=== PATIENT | male | born 1935 | race Caucasian/White ===

== ENCOUNTER 2016-08-21 11:03 | Emergency (ER) | payer MEDICARE, OTHER ==
[~2016-08-21] VITALS: Ht 172.7 cm; Wt 72.6 kg
[2016-08-21 11:03] VITALS: BP 177/110
== END 2016-08-21 11:27 | disposition home or self-care (01) ==
LOC: ER 11:05
DX: J02.9 Acute pharyngitis, unspecified (principal); Z90.89 Acquired absence of other organs
CPT/HCPCS: 99283; A4606; Z7610

== ENCOUNTER 2016-10-30 09:34 | Emergency (ER) | payer OTHER ==
[~2016-10-30] VITALS: Ht 170.2 cm; Wt 66.2 kg
[2016-10-30 09:38] VITALS: BP 151/104
== END 2016-10-30 10:04 | disposition home or self-care (01) ==
LOC: ER 09:36
DX: L03.116 Cellulitis of left lower limb (principal); M10.9 Gout, unspecified
CPT/HCPCS: 99283; A4606; Z7610

== ENCOUNTER 2016-12-26 14:46 | Emergency (ER) | payer MEDICARE, OTHER ==
[~2016-12-26] VITALS: Ht 165.1 cm; Wt 65.8 kg
[2016-12-26 15:00] VITALS: BP 122/81
[2016-12-26] MEDS ORDERED: INDOMETHACIN 25 MG CAPSULE ONE (15:26)
[2016-12-26] MEDS ORDERED: INDOMETHACIN 25 MG CAPSULE PO ONE (15:30)
== END 2016-12-26 16:44 | disposition home or self-care (01) ==
LOC: ER 14:47
DX: M10.9 Gout, unspecified (principal); Z90.89 Acquired absence of other organs
CPT/HCPCS: 36415; 73660; 84550; 99285; A4606; Z7610

== ENCOUNTER 2016-12-28 13:52 | Emergency (ER) | payer MEDICARE ==
[~2016-12-28] VITALS: Ht 170.2 cm; Wt 68.0 kg
--- NOTE | 2016-12-28 14:15 | NUR ---
PT BIB SELF C/O HTN TODAY "I FELT IT INCREASE". DENIES PAIN. NO NEURO DEFICITS. NAD NOTED. RESP EVEN UNLABORED. SKIN WARM NONDIAPHORETIC. AMBULATORY WITH STEADY GAIT.
--- NOTE | 2016-12-28 14:49 | NUR ---
EMT AT BEDSIDE FOR EKG
[2016-12-28 15:01] LABS: BASOPHILS % (AUTO) 0.5 % (0.0-2.0); EOSINOPHILS % (AUTO) 0.3 % (0.0-6.0); HEMATOCRIT 42 % (39-51); LYMPHOCYTES # (AUTO) 0.5 /CMM (0.8-4.8); LYMPHOCYTES % (AUTO) 7.8 % (20.0-44.0); MEAN CORPUSCULAR HEMOGLOBIN 30 PG (26.0-33.0); MEAN CORPUSCULAR HGB CONC 34 g/dl (31.0-36.0); MEAN CORPUSCULAR VOLUME 90 fL (80-96); MONOCYTES # (AUTO) 0.5 /CMM (0.1-1.30); MONOCYTES % (AUTO) 7.3 % (2.0-12.0); NEUTROPHILS # (AUTO) 5.4 /CMM (1.8-8.9); NEUTROPHILS % (AUTO) 84.1 % (43.0-81.0); PLATELET COUNT (AUTO) 177 /CMM (150-450); RDW COEFFICIENT OF VARIATION 12.2 (11.5-15.0); RED BLOOD CELL COUNT(AUTO) 4.64 MIL/uL (4.5-6.0); WHITE BLOOD COUNT (AUTO) 6.4 K/uL (4.3-11.0)
[2016-12-28 15:08] LABS: CALCIUM, SERUM 8.7 mg/dL (8.5-10.1); CARBON DIOXIDE 33 mmol/L (21-32); CHLORIDE 101 mmol/L (98-107); CREATININE 1.1 mg/dL (0.6-1.3); GLUCOSE 140 mg/dL (74-106); POTASSIUM 3.7 mmol/L (3.5-5.1); SODIUM SERUM 139 mmol/L (136-145); UREA NITROGEN, BLOOD 9 mg/dL (7-18)
[2016-12-28 15:15] LABS: INR 1.02 (0.87-1.13); PROTHROMBIN TIME 10.6 SECS (9.5-12.7)
--- NOTE | 2016-12-28 16:04 | NUR ---
IV removed. Catheter intact and site benign. Pressure and 4x4 applied to site. No bleeding noted. Patient discharged to home in stable condition. Written and verbal after care instructions given. Patient verbalizes understanding of instruction. AMBULATORY WITH STEADY GAIT.
[2016-12-28 16:05] VITALS: BP 165/93
== END 2016-12-28 16:07 | disposition home or self-care (01) ==
LOC: ER 13:53
DX: I48.91 Unspecified atrial fibrillation (principal); I10 Essential (primary) hypertension; Z98.890 Other specified postprocedural states
CPT/HCPCS: 36415; 71010-TC; 80048-TC; 85025-TC; 85730-TC; A4606; Z7610

== ENCOUNTER 2018-05-30 13:20 | Emergency (ER) | payer MEDICARE, OTHER ==
[~2018-05-30] VITALS: Ht 162.6 cm; Wt 69.9 kg
[2018-05-30 13:20] VITALS: BP 167/84
[2018-05-30] MEDS ORDERED: CEPHALEXIN MONOHYDRATE 500 MG CAPSULE PO ONE ×2 (15:18→15:30)
[2018-05-30] MEDS ORDERED: IBUPROFEN 600 MG TABLET PO ONE ×2 (15:19→15:30)
== END 2018-05-30 16:32 | disposition home or self-care (01) ==
LOC: ER 13:21
DX: S92.591A Other fracture of right lesser toe(s), initial encounter for closed fracture (principal); L03.115 Cellulitis of right lower limb; Z98.890 Other specified postprocedural states; Z60.2 Problems related to living alone; Z90.89 Acquired absence of other organs; W22.8XXA Striking against or struck by other objects, initial encounter; Y93.89 Activity, other specified; Y92.89 Other specified places as the place of occurrence of the external cause; Y99.8 Other external cause status
CPT/HCPCS: 73630; 99283; A4606; Z7610

== ENCOUNTER 2018-07-07 11:38 | Emergency (ER) | payer MEDICARE ==
[~2018-07-07] VITALS: Ht 170.2 cm; Wt 56.7 kg
[2018-07-07 11:41] VITALS: BP 149/69
--- NOTE | 2018-07-07 11:56 | NUR ---
DR. CARDONA AT BEDSIDE FOR EVAL.
[2018-07-07] MEDS ORDERED: COLCHICINE 0.6 MG TABLET ONE (12:07)
[2018-07-07] MEDS ORDERED: IBUPROFEN 600 MG TABLET PO ONE ×2 (12:07→12:30)
[2018-07-07] MEDS ORDERED: COLCHICINE 0.6 MG TABLET PO ONE (12:30)
== END 2018-07-07 12:18 | disposition home or self-care (01) ==
LOC: ER 11:39
DX: M10.072 Idiopathic gout, left ankle and foot (principal); F10.10 Alcohol abuse, uncomplicated; Y90.9 Presence of alcohol in blood, level not specified; Z60.2 Problems related to living alone; Z98.890 Other specified postprocedural states; Z90.89 Acquired absence of other organs
CPT/HCPCS: 36415; 84550-TC

== ENCOUNTER 2018-07-20 12:43 | Emergency (ER) | payer MEDICARE ==
[~2018-07-20] VITALS: Ht 170.2 cm; Wt 68.5 kg
[2018-07-20 12:54] VITALS: BP 129/71
== END 2018-07-20 13:32 | disposition home or self-care (01) ==
LOC: ER 12:44
DX: I87.2 Venous insufficiency (chronic) (peripheral) (principal); F10.10 Alcohol abuse, uncomplicated; Y90.9 Presence of alcohol in blood, level not specified; Z98.890 Other specified postprocedural states; Z90.89 Acquired absence of other organs; Z60.2 Problems related to living alone
CPT/HCPCS: 99281; A4606; Z7502

== ENCOUNTER 2018-09-02 13:35 | Emergency (ER) | payer MEDICARE ==
[~2018-09-02] VITALS: Ht 165.1 cm; Wt 69.9 kg
--- NOTE | 2018-09-02 13:54 | NUR ---
patient presented to the ER c/o right hip pain s/p fall, rolled out from the bed. On room air, breathing evenly and unlabored. kept comfortable, will continue to monitor accordingly. Awaiting for MD for eval.
[2018-09-02 15:05] VITALS: BP 145/71
--- NOTE | 2018-09-02 15:06 | NUR ---
Patient discharged to home in stable condition. Written and verbal after care instructions given. Patient verbalizes understanding of instruction.
== END 2018-09-02 15:06 | disposition home or self-care (01) ==
LOC: ER 13:39
DX: S20.211A Contusion of right front wall of thorax, initial encounter (principal); S70.01XA Contusion of right hip, initial encounter; F10.10 Alcohol abuse, uncomplicated; Y90.9 Presence of alcohol in blood, level not specified; Z98.890 Other specified postprocedural states; Z90.89 Acquired absence of other organs; Z60.2 Problems related to living alone; W06.XXXA Fall from bed, initial encounter; Y93.89 Activity, other specified; Y92.89 Other specified places as the place of occurrence of the external cause; Y99.8 Other external cause status
CPT/HCPCS: 71045; 72170; 99283; A4606

== ENCOUNTER 2018-09-23 18:09 | Emergency (ER) | payer MEDICARE ==
[~2018-09-23] VITALS: Ht 172.7 cm; Wt 64.0 kg
[2018-09-23] MEDS ORDERED: BENAZEPRIL HCL 10 MG TABLET ONE (19:25)
[2018-09-23] MEDS ORDERED: BENAZEPRIL HCL 10 MG TABLET PO ONE (19:30)
[2018-09-23 20:38] VITALS: BP 168/77
== END 2018-09-23 20:48 | disposition home or self-care (01) ==
LOC: ER 18:31
DX: S20.211A Contusion of right front wall of thorax, initial encounter (principal); I10 Essential (primary) hypertension; I48.91 Unspecified atrial fibrillation; F10.10 Alcohol abuse, uncomplicated; Y90.9 Presence of alcohol in blood, level not specified; Z98.890 Other specified postprocedural states; Z90.89 Acquired absence of other organs; Z60.2 Problems related to living alone; X58.XXXA Exposure to other specified factors, initial encounter; Y93.89 Activity, other specified; Y92.89 Other specified places as the place of occurrence of the external cause; Y99.8 Other external cause status

== ENCOUNTER 2019-01-28 11:11 | Emergency (ER) | payer MEDICARE ==
[~2019-01-28] VITALS: Ht 167.6 cm; Wt 65.8 kg
[2019-01-28 12:45] VITALS: BP 135/78
--- NOTE | 2019-01-28 12:46 | NUR ---
Patient discharged to home in stable condition. Written and verbal after care instructions given. Patient verbalizes understanding of instruction. Ambulatory with steady gait in no apparent distress noted. Accompanied by . Prescription given and health teaching.
== END 2019-01-28 12:46 | disposition home or self-care (01) ==
LOC: ER 11:13
DX: S41.112A Laceration without foreign body of left upper arm, initial encounter (principal); F10.10 Alcohol abuse, uncomplicated; Y90.9 Presence of alcohol in blood, level not specified; Z90.89 Acquired absence of other organs; Z98.890 Other specified postprocedural states; Z60.2 Problems related to living alone; W01.0XXA Fall on same level from slipping, tripping and stumbling without subsequent striking against object, initial encounter; Y93.89 Activity, other specified; Y92.89 Other specified places as the place of occurrence of the external cause; Y99.8 Other external cause status
CPT/HCPCS: 73060; 73090; 99283; A6403

== ENCOUNTER 2019-03-13 09:28 | Emergency (ER) | payer MEDICARE ==
[~2019-03-13] VITALS: Ht 170.2 cm; Wt 66.7 kg
[2019-03-13 09:30] VITALS: BP 151/73
[2019-03-13] MEDS ORDERED: TDAP [DIPH/PERTUSSIS/TET] 0.5 ML VIAL IM ONE ×2 (09:51→10:00)
--- NOTE | 2019-03-13 09:59 | NUR ---
WOUND CLEANSED, APPLIED TRIPLE ATB OINTMENT, AND COVERED WITH BANDAGE. Addendum: 03/13/19 at 1012 by LADONNA WOUND CARE TO KOKI AND ADELE.
[2019-03-13] MEDS ORDERED: BACI/NEOM/POLY B OINT PKT 1 UDPKT PACKET TP ONE (10:00)
== END 2019-03-13 10:13 | disposition home or self-care (01) ==
LOC: ER 09:33
DX: S81.811A Laceration without foreign body, right lower leg, initial encounter (principal); S41.111A Laceration without foreign body of right upper arm, initial encounter; F10.10 Alcohol abuse, uncomplicated; Y90.9 Presence of alcohol in blood, level not specified; Z90.89 Acquired absence of other organs; Z60.2 Problems related to living alone; W01.0XXA Fall on same level from slipping, tripping and stumbling without subsequent striking against object, initial encounter; Y93.89 Activity, other specified; Y92.89 Other specified places as the place of occurrence of the external cause; Y99.8 Other external cause status
CPT/HCPCS: 90471; 90715; 99283; A6403

== ENCOUNTER 2019-06-25 09:33 | Emergency (ER) | payer MEDICARE ==
[~2019-06-25] VITALS: Ht 170.2 cm; Wt 68.0 kg
--- NOTE | 2019-06-25 09:33 | NUR ---
MARLYN PANIAGUA AT BEDSIDE FOR EKG.
--- NOTE | 2019-06-25 09:34 | NUR ---
PT BIBRA 87 FROM HOME C/O CHEST PAIN PRESSURE LIKE STARTED 9PM LAST NIGHT RADIATES TO L ARM, 3 DOSE OF NTG SPRAY GIVEN BY EMS BELLOWS ASSEMBLER, PT IS AAOX4, NOT IN RESPIRATORY DISTRESS, HOOKED TO ZONING ENGINEER, KEPT RESTED AND COMFORTABLE, WILL CONTINUE TO MONITOR.
--- NOTE | 2019-06-25 09:40 | NUR ---
AT BEDSIDE FOR EVAL.
[2019-06-25] MEDS ORDERED: ASPIRIN 81 MG TAB.CHEW PO ONE (10:00)
[2019-06-25 10:02] LABS: BASOPHILS # (AUTO) 0.1 /CMM (0.0-0.2); BASOPHILS % (AUTO) 0.9 % (0.0-2.0); EOSINOPHILS % (AUTO) 1.1 % (0.0-6.0); HEMATOCRIT 46 % (39-51); HEMOGLOBIN 15.1 g/dL (13.5-17.5); LYMPHOCYTES # (AUTO) 1.7 /CMM (0.8-4.8); LYMPHOCYTES % (AUTO) 27.8 % (20.0-44.0); MEAN CORPUSCULAR HGB CONC 33 g/dl (31.0-36.0); MEAN CORPUSCULAR VOLUME 93 fL (80-96); MONOCYTES # (AUTO) 0.6 /CMM (0.1-1.30); MONOCYTES % (AUTO) 9.4 % (2.0-12.0); NEUTROPHILS # (AUTO) 3.6 /CMM (1.8-8.9); NEUTROPHILS % (AUTO) 60.8 % (43.0-81.0); PLATELET COUNT (AUTO) 193 /CMM (150-450); RED BLOOD CELL COUNT(AUTO) 4.87 MIL/uL (4.5-6.0)
--- NOTE | 2019-06-25 10:05 | NUR ---
XRAY AT BEDSIDE
[2019-06-25] MEDS ORDERED: ASPIRIN 81 MG TAB.CHEW ONE (10:07)
[2019-06-25 10:10] LABS: CALCIUM, SERUM 10.4 mg/dL (8.5-10.1); CARBON DIOXIDE 31 mmol/L (21-32); CHLORIDE 97 mmol/L (98-107); CREATININE 1.3 mg/dL (0.6-1.3); GLUCOSE 130 mg/dL (74-106); POTASSIUM 3.8 mmol/L (3.5-5.1); SODIUM SERUM 130 mmol/L (136-145); UREA NITROGEN, BLOOD 18 mg/dL (7-18)
[2019-06-25 10:23] LABS: ALANINE AMINOTRANSFERASE 21 U/L (12-78); ALBUMIN 3.5 g/dL (3.4-5.0); ALKALINE PHOSPHATASE 54 U/L (46-116); ASPARTATE AMINOTRANSFERASE 25 U/L (15-37); B-TYPE NATRIURETIC PEPTIDE 1195 PG/ML (0-125); BILIRUBIN,DIRECT 0.2 mg/dL (0.0-0.2); BILIRUBIN,TOTAL 0.7 mg/dL (0.2-1.0); TOTAL PROTEIN, SERUM 7.1 g/dL (6.4-8.2)
--- NOTE | 2019-06-25 10:27 | NUR ---
ASKED NURSING SUP FOR TELE BED. WAITING FOR CALL BACK.
--- NOTE | 2019-06-25 10:56 | NUR ---
ROOM CHANGE 326-2
--- NOTE | 2019-06-25 11:16 | NUR ---
report given to Sera LONG for cara.
--- NOTE | 2019-06-25 11:33 | NUR ---
[facility] partner will call back for more info.
--- NOTE | 2019-06-25 11:55 | NUR ---
AWAITING CALL BACK FROM CM REGARDING BED ASSIGNMENT
--- NOTE | 2019-06-25 11:55 | NUR ---
PT ACCEPTED AT [facility]
--- NOTE | 2019-06-25 12:53 | NUR ---
bed assignment room [id number] number to report [phone] transportation will call back
--- NOTE | 2019-06-25 13:02 | NUR ---
ETA 1 HOUR FOR [facility] AMBULANCE
--- NOTE | 2019-06-25 13:08 | NUR ---
CALLED FOR REPORT, NURSE NAME IS FRANCO, NURSE WILL CALL BACK
--- NOTE | 2019-06-25 13:21 | NUR ---
REPORT GIVEN TO FRANCO LONG FOR VIPIN PT WILL BE TRANSPORTED TO [facility]
--- NOTE | 2019-06-25 13:51 | NUR ---
PT TRANSPORTED TO [facility] VIA PRIVATE AMBULANCE, -SOB, NAD NOTED, PT IN STABLE CONDITION, REPORT GIVEN TO STAFF.
[2019-06-25 13:52] VITALS: BP 149/84
== END 2019-06-25 13:53 | disposition short-term general hospital (02) ==
LOC: ER 09:34
DX: I48.91 Unspecified atrial fibrillation (principal); I10 Essential (primary) hypertension; M10.9 Gout, unspecified; Z90.89 Acquired absence of other organs; Z60.2 Problems related to living alone
CPT/HCPCS: 36415; 71045-TC; 80048-TC; 80076-TC; 83880; 84484-TC; 85025-TC; 85730-TC; 87081-TC

== ENCOUNTER 2023-08-28 03:22 | Emergency (ER) | payer MEDICARE, OTHER ==
[~2023-08-28] VITALS: Ht 170.2 cm; Wt 70.3 kg
[2023-08-28 03:24] VITALS: BP 124/65; TEMP 97.7; O2SAT 90
[2023-08-28] MEDS ORDERED: IV NS 0.9% 1,000 ML BAG IV ONE (04:30)
== END 2023-08-28 04:45 | disposition left against medical advice (07) ==
LOC: ER 03:24
DX: R68.89 Other general symptoms and signs (principal); I10 Essential (primary) hypertension; R51.9 Headache, unspecified; I48.91 Unspecified atrial fibrillation; Z90.49 Acquired absence of other specified parts of digestive tract; W18.39XA Other fall on same level, initial encounter; Y93.89 Activity, other specified; Y92.89 Other specified places as the place of occurrence of the external cause; Y99.8 Other external cause status
CPT/HCPCS: 70450-TC

== ENCOUNTER 2023-09-26 04:33 | Emergency (ER) | payer BC, OTHER ==
[~2023-09-26] VITALS: Ht 170.2 cm; Wt 70.3 kg
[2023-09-26 06:40] LABS: BASOPHILS # (AUTO) 0.1 K/uL (0.0-0.2); BASOPHILS % (AUTO) 0.8 % (0.0-2.0); EOSINOPHILS # (AUTO) 0.4 K/uL (0.0-0.7); EOSINOPHILS % (AUTO) 3.9 % (0.0-6.0); HEMATOCRIT 37 % (39-51); HEMOGLOBIN 12.6 g/dL (13.5-17.5); LYMPHOCYTES # (AUTO) 1.4 K/uL (0.8-4.8); LYMPHOCYTES % (AUTO) 13.5 % (20.0-44.0); MEAN CORPUSCULAR HEMOGLOBIN 29 PG (26.0-33.0); MEAN CORPUSCULAR HGB CONC 34 g/dl (31.0-36.0); MEAN CORPUSCULAR VOLUME 85 fL (80-96); MONOCYTES % (AUTO) 10.2 % (2.0-12.0); NEUTROPHILS # (AUTO) 7.3 K/uL (1.8-8.9); NEUTROPHILS % (AUTO) 71.6 % (43.0-81.0); PLATELET COUNT (AUTO) 243 K/uL (150-450); RED BLOOD CELL COUNT(AUTO) 4.41 MIL/uL (4.5-6.0); WHITE BLOOD COUNT (AUTO) 10.2 K/uL (4.3-11.0)
[2023-09-26 06:50] LABS: APPEARANCE,URINE CLEAR (CLEAR); BILIRUBIN,URINE NEGATIVE (NEGATIVE); BLOOD, URINE 2+ Ery/uL (NEGATIVE); COLOR,URINE YELLOW (YELLOW); KETONES,URINE 1+ mg/dL (NEGATIVE); LEUKOCYTE ESTERASE ,URINE NEGATIVE (NEGATIVE); NITRITE, URINE NEGATIVE (NEGATIVE); PROTEIN,URINE NEGATIVE (NEGATIVE); UGLUCOSE NEGATIVE (NEGATIVE); UROBILINOGEN,URINE 0.2 EU/dL (0.2)
[2023-09-26 06:54] LABS: ADD URINE CULTURE NO; BACTERIA,URINE Rare /HPF (None Seen); SQUAMOUS EPITHELIAL CELL,UR Few /HPF (None Seen); WBC,URINE 0-2 /HPF (0-3)
[2023-09-26 06:55] LABS: CARBON DIOXIDE 27 mmol/L (21-32); CHLORIDE 99 mmol/L (98-107); CREATININE 1.4 mg/dL (0.6-1.3); GLUCOSE 97 mg/dL (74-106); POTASSIUM 4.4 mmol/L (3.5-5.1); SODIUM SERUM 134 mmol/L (136-145); UREA NITROGEN, BLOOD 21 mg/dL (7-18)
[2023-09-26 06:57] LABS: ALANINE AMINOTRANSFERASE 32 U/L (12-78); ALBUMIN 3.1 g/dL (3.4-5.0); ALKALINE PHOSPHATASE 94 U/L (46-116); ASPARTATE AMINOTRANSFERASE 58 U/L (15-37); BILIRUBIN,DIRECT 0.2 mg/dL (0.0-0.2); BILIRUBIN,TOTAL 0.9 mg/dL (0.2-1.0); LIPASE 21 U/L (16-77); TOTAL PROTEIN, SERUM 7.3 g/dL (6.4-8.2)
[2023-09-26] MEDS ORDERED: TAMS-12 PO (09:16)
[2023-09-26 09:49] VITALS: BP 134/76; TEMP 98; O2SAT 99
[2023-09-27] MEDS ORDERED: QUET25TA PO (07:44)
[2023-09-27] MEDS ORDERED: BENA10TA74 PO (07:44)
[2023-09-27] MEDS ORDERED: COLC0.6C3 PO (07:44)
[2023-10-01] MEDS ORDERED: QUET25TA PO (08:25)
== END 2023-09-26 09:52 | disposition home or self-care (01) ==
LOC: ER 04:33
DX: R33.9 Retention of urine, unspecified (principal); R10.84 Generalized abdominal pain; I10 Essential (primary) hypertension; I48.91 Unspecified atrial fibrillation; Z90.89 Acquired absence of other organs
CPT/HCPCS: 36415; 71045-TC; 80048-TC; 80076-TC; 81001; 83690-TC; 85025-TC

== ENCOUNTER 2023-09-27 00:51 | Inpatient (IN) | payer OTHER ==
[~2023-09-27] VITALS: Ht 170.2 cm; Wt 70.3 kg
[~2023-09-27 00:51] MED LIST: TAMS-12 PO
[2023-09-27 01:58] LABS: BASOPHILS # (AUTO) 0.1 K/uL (0.0-0.2); BASOPHILS % (AUTO) 0.5 % (0.0-2.0); EOSINOPHILS # (AUTO) 0.1 K/uL (0.0-0.7); HEMATOCRIT 39 % (39-51); HEMOGLOBIN 12.8 g/dL (13.5-17.5); LYMPHOCYTES # (AUTO) 1.1 K/uL (0.8-4.8); LYMPHOCYTES % (AUTO) 9.9 % (20.0-44.0); MEAN CORPUSCULAR HEMOGLOBIN 28 PG (26.0-33.0); MEAN CORPUSCULAR HGB CONC 33 g/dl (31.0-36.0); MEAN CORPUSCULAR VOLUME 86 fL (80-96); MONOCYTES % (AUTO) 8.7 % (2.0-12.0); NEUTROPHILS % (AUTO) 79.9 % (43.0-81.0); PLATELET COUNT (AUTO) 263 K/uL (150-450); RED BLOOD CELL COUNT(AUTO) 4.53 MIL/uL (4.5-6.0); RED CELL DISTRIBUTION WIDTH 13.8 % (11.5-15.0); WHITE BLOOD COUNT (AUTO) 11.2 K/uL (4.3-11.0)
[2023-09-27 02:00] LABS: CARBON DIOXIDE 23 mmol/L (21-32); CHLORIDE 100 mmol/L (98-107); CREATININE 1.5 mg/dL (0.6-1.3); GLUCOSE 95 mg/dL (74-106); SODIUM SERUM 133 mmol/L (136-145); UREA NITROGEN, BLOOD 21 mg/dL (7-18)
[2023-09-27 02:06] LABS: ALANINE AMINOTRANSFERASE 31 U/L (12-78); ALBUMIN 3.3 g/dL (3.4-5.0); ALCOHOL, BLOOD < 3 mg/dL (0-10); ALKALINE PHOSPHATASE 103 U/L (46-116); ASPARTATE AMINOTRANSFERASE 56 U/L (15-37); BILIRUBIN,DIRECT 0.2 mg/dL (0.0-0.2); BILIRUBIN,TOTAL 0.7 mg/dL (0.2-1.0); TOTAL PROTEIN, SERUM 7.5 g/dL (6.4-8.2)
[2023-09-27 02:08] LABS: ACETAMINOPHEN <10 ug/ml (10-30); SALICYLATE 1.4 mg/dL (2.8-20.0)
[2023-09-27 03:17] LABS: APPEARANCE,URINE CLOUDY (CLEAR); BILIRUBIN,URINE 1+ (NEGATIVE); BLOOD, URINE 3+ Ery/uL (NEGATIVE); COLOR,URINE DARK YELLOW (YELLOW); KETONES,URINE 2+ mg/dL (NEGATIVE); LEUKOCYTE ESTERASE ,URINE 1+ (NEGATIVE); NITRITE, URINE NEGATIVE (NEGATIVE); PH,URINE 5.5 (5.0-8.0); PROTEIN,URINE 1+ mg/dl (NEGATIVE); UGLUCOSE NEGATIVE (NEGATIVE); UROBILINOGEN,URINE 0.2 EU/dL (0.2)
[2023-09-27 03:25] LABS: AMPHETAMINE, URINE NEGATIVE (NEGATIVE); BARBITURATE, URINE NEGATIVE (NEGATIVE); BENZODIAZEPINE, URINE NEGATIVE (NEGATIVE); CANNABINOID, URINE NEGATIVE (NEGATIVE); COCCAINE, URINE NEGATIVE (NEGATIVE); OPIATE, URINE NEGATIVE (NEGATIVE); PHENCYCLIDINE SCREEN,URINE NEGATIVE (NEGATIVE)
[2023-09-27 03:26] LABS: ADD URINE CULTURE YES; BACTERIA,URINE Few /HPF (None Seen); RBC,URINE 51-80 /HPF (0-2); SQUAMOUS EPITHELIAL CELL,UR Rare /HPF (None Seen)
[2023-09-27] MEDS ORDERED: CIPROFLOXACIN HCL 500 MG TABLET PO ONE (04:00)
[2023-09-27] MEDS ORDERED: CEFTRIAXONE 1GM BAG (ER ONLY) 0 ML IV ONE (04:25)
[2023-09-27] MEDS: CEFTRIAXONE 1GM BAG (ER ONLY) 1 GM/50 ML PIGGYBACK IV ONE (04:25)
[2023-09-27] MEDS ORDERED: ONDANSETRON HCL/PF 4 MG/2 ML VIAL IVP PRN (05:30)
[2023-09-27] MEDS ORDERED: COLC0.6C3 PO (07:44)
[2023-09-27] MEDS ORDERED: BENA10TA74 PO (07:44)
[2023-09-27] MEDS ORDERED: QUET25TA PO (07:44)
[2023-09-27] MEDS: QUETIAPINE FUMARATE 25 MG TABLET PO SCH (09:00)
[2023-09-27] MEDS ORDERED: TAMSULOSIN 0.4 MG CAP.SR.24H ONE (09:23)
[2023-09-27] MEDS ORDERED: ENOXAPARIN SODIUM 40 MG/0.4 ML DISP.SYRIN SQ ONE (09:23)
[2023-09-27] MEDS: TAMSULOSIN 0.4 MG CAP.SR.24H PO SCH (09:31)
[2023-09-27] MEDS: ENOXAPARIN SODIUM 40 MG/0.4 ML DISP.SYRIN SQ SCH (09:32)
[2023-09-27] MEDS ORDERED: QUETIAPINE FUMARATE 25 MG TABLET ONE ×2 (10:11→10:29)
[2023-09-27] MEDS: CEFTRIAXONE 1 G in IV D5W 50 ML IV SCH (10:26)
[2023-09-27] MEDS ORDERED: CEFTRIAXONE 1GM BAG (ER ONLY) 50 ML IV ONE (10:29)
[2023-09-27 16:00] VITALS: BP 154/80; TEMP 97.7; O2SAT 98
[2023-09-27] MEDS ORDERED: LORAZEPAM INJ 2 MG/ML VIAL IV PRN (19:00)
[2023-09-27 20:00] VITALS: BP 171/87; TEMP 98.2; O2SAT 97
[2023-09-27 23:09] VITALS: BP 161/94
[2023-09-27] MEDS: IV NS 0.9% 1,000 ML IV PRN (23:12)
[2023-09-28 04:00] VITALS: BP 171/97; TEMP 98.2; O2SAT 98
[2023-09-28] MEDS: hydrALAZINE HCL IV 20 MG VIAL IV PRN (06:26)
[2023-09-28 06:43] LABS: BASOPHILS % (AUTO) 0.4 % (0.0-2.0); EOSINOPHILS # (AUTO) 0.1 K/uL (0.0-0.7); EOSINOPHILS % (AUTO) 0.5 % (0.0-6.0); HEMATOCRIT 39 % (39-51); HEMOGLOBIN 12.9 g/dL (13.5-17.5); LYMPHOCYTES % (AUTO) 9.3 % (20.0-44.0); MEAN CORPUSCULAR HEMOGLOBIN 28 PG (26.0-33.0); MEAN CORPUSCULAR HGB CONC 33 g/dl (31.0-36.0); MEAN CORPUSCULAR VOLUME 85 fL (80-96); MONOCYTES % (AUTO) 9.3 % (2.0-12.0); NEUTROPHILS # (AUTO) 8.3 K/uL (1.8-8.9); NEUTROPHILS % (AUTO) 80.5 % (43.0-81.0); PLATELET COUNT (AUTO) 290 K/uL (150-450); RED BLOOD CELL COUNT(AUTO) 4.55 MIL/uL (4.5-6.0); WHITE BLOOD COUNT (AUTO) 10.3 K/uL (4.3-11.0)
[2023-09-28] MEDS: LORAZEPAM INJ 2 MG/ML VIAL IV PRN (06:59)
[2023-09-28 07:03] LABS: CALCIUM, SERUM 8.9 mg/dL (8.5-10.1); CREATININE 1.3 mg/dL (0.6-1.3); PHOSPHORUS 2.9 mg/dL (2.5-4.9); POTASSIUM 3.9 mmol/L (3.5-5.1)
[2023-09-28 08:00] VITALS: BP 148/98; TEMP 97.5
[2023-09-28] MEDS: CEFTRIAXONE 1 G in IV D5W 50 ML IV SCH (09:55)
[2023-09-28] MEDS: AMLODIPINE BESYLATE 5 MG TABLET PO SCH (09:56)
[2023-09-28] MEDS: QUETIAPINE FUMARATE 25 MG TABLET PO SCH (09:56)
[2023-09-28] MEDS: ACETAMINOPHEN 325 MG TABLET PO PRN (13:45)
[2023-09-28 16:00] VITALS: BP 128/72; TEMP 98.5
[2023-09-28 20:00] VITALS: BP 139/76; TEMP 97.3; O2SAT 98
[2023-09-29] VITALS: BP 132/71; TEMP 98.2; O2SAT 97
[2023-09-29 04:00] VITALS: BP 137/46; TEMP 97.7; O2SAT 92
[2023-09-29 06:49] LABS: BASOPHILS # (AUTO) 0.1 K/uL (0.0-0.2); BASOPHILS % (AUTO) 0.7 % (0.0-2.0); EOSINOPHILS # (AUTO) 0.3 K/uL (0.0-0.7); EOSINOPHILS % (AUTO) 3.4 % (0.0-6.0); HEMATOCRIT 37 % (39-51); HEMOGLOBIN 12.3 g/dL (13.5-17.5); LYMPHOCYTES # (AUTO) 1.2 K/uL (0.8-4.8); LYMPHOCYTES % (AUTO) 15.1 % (20.0-44.0); MEAN CORPUSCULAR HEMOGLOBIN 29 PG (26.0-33.0); MEAN CORPUSCULAR HGB CONC 33 g/dl (31.0-36.0); MEAN CORPUSCULAR VOLUME 86 fL (80-96); MONOCYTES # (AUTO) 0.8 K/uL (0.1-1.30); MONOCYTES % (AUTO) 9.8 % (2.0-12.0); NEUTROPHILS # (AUTO) 5.9 K/uL (1.8-8.9); PLATELET COUNT (AUTO) 274 K/uL (150-450); RED BLOOD CELL COUNT(AUTO) 4.32 MIL/uL (4.5-6.0); RED CELL DISTRIBUTION WIDTH 13.8 % (11.5-15.0); WHITE BLOOD COUNT (AUTO) 8.3 K/uL (4.3-11.0)
[2023-09-29 07:25] LABS: ALBUMIN 2.9 g/dL (3.4-5.0); BILIRUBIN,TOTAL 0.7 mg/dL (0.2-1.0); CALCIUM, SERUM 8.9 mg/dL (8.5-10.1); CREATININE 1.1 mg/dL (0.6-1.3); PHOSPHORUS 2.3 mg/dL (2.5-4.9); POTASSIUM 3.9 mmol/L (3.5-5.1)
[2023-09-29 08:52] VITALS: BP 127/67; TEMP 97.7; O2SAT 92
[2023-09-29 09:29] LABS: APPEARANCE,URINE SLIGHTLY CLOUDY (CLEAR); BILIRUBIN,URINE 1+ (NEGATIVE); BLOOD, URINE 3+ Ery/uL (NEGATIVE); COLOR,URINE DARK YELLOW (YELLOW); KETONES,URINE 2+ mg/dL (NEGATIVE); LEUKOCYTE ESTERASE ,URINE 1+ (NEGATIVE); NITRITE, URINE NEGATIVE (NEGATIVE); PROTEIN,URINE 2+ mg/dl (NEGATIVE); UGLUCOSE NEGATIVE (NEGATIVE); UROBILINOGEN,URINE 0.2 EU/dL (0.2)
[2023-09-29 10:06] LABS: ADD URINE CULTURE YES; BACTERIA,URINE Few /HPF (None Seen); RBC,URINE 51-80 /HPF (0-2); SQUAMOUS EPITHELIAL CELL,UR Moderate /HPF (None Seen)
[2023-09-29 10:24] LABS: EOSINOPHIL,URINE None Seen
[2023-09-29 10:27] LABS: CREATININE, URINE 224.8 MG/DL (30.0-125.0); URINE TOTAL PROTEIN 102.7 mg/dL (0-11.9)
[2023-09-29] MEDS: QUETIAPINE FUMARATE 25 MG TABLET PO ONE (14:32)
[2023-09-29 16:00] VITALS: BP 133/90; TEMP 97.2; O2SAT 93
[2023-09-29] MEDS: K PHOS NEUTRAL 250 MG TABLET PO ONE (16:33)
[2023-09-29] MEDS: NEUTRA PHOS 1 POWD.PACKET PO ONE (17:28)
[2023-09-29 20:00] VITALS: BP 166/93; TEMP 98; O2SAT 99
[2023-09-30 04:00] VITALS: BP_SYST 120; BP_SYST 139; BP_DIAS 56; BP_DIAS 72; TEMP 97.9; TEMP 98; O2SAT 100; O2SAT 99
[2023-09-30 08:00] VITALS: BP 144/85; TEMP 98.6; O2SAT 98
[2023-09-30 09:12] LABS: BASOPHILS # (AUTO) 0.1 K/uL (0.0-0.2); BASOPHILS % (AUTO) 1.4 % (0.0-2.0); EOSINOPHILS # (AUTO) 0.3 K/uL (0.0-0.7); EOSINOPHILS % (AUTO) 3.4 % (0.0-6.0); HEMATOCRIT 36 % (39-51); LYMPHOCYTES # (AUTO) 0.8 K/uL (0.8-4.8); LYMPHOCYTES % (AUTO) 9.5 % (20.0-44.0); MEAN CORPUSCULAR HEMOGLOBIN 28 PG (26.0-33.0); MEAN CORPUSCULAR HGB CONC 33 g/dl (31.0-36.0); MEAN CORPUSCULAR VOLUME 85 fL (80-96); MONOCYTES # (AUTO) 0.7 K/uL (0.1-1.30); MONOCYTES % (AUTO) 8.5 % (2.0-12.0); NEUTROPHILS # (AUTO) 6.4 K/uL (1.8-8.9); NEUTROPHILS % (AUTO) 77.2 % (43.0-81.0); PLATELET COUNT (AUTO) 276 K/uL (150-450); RED BLOOD CELL COUNT(AUTO) 4.26 MIL/uL (4.5-6.0); RED CELL DISTRIBUTION WIDTH 14.7 % (11.5-15.0); WHITE BLOOD COUNT (AUTO) 8.3 K/uL (4.3-11.0)
[2023-09-30 09:37] LABS: CALCIUM, SERUM 8.6 mg/dL (8.5-10.1); PHOSPHORUS 2.7 mg/dL (2.5-4.9); POTASSIUM 3.6 mmol/L (3.5-5.1)
[2023-09-30] MEDS: QUETIAPINE FUMARATE 25 MG TABLET PO SCH (10:01)
[2023-09-30] MEDS: AMLODIPINE BESYLATE 5 MG TABLET PO SCH (10:02)
[2023-09-30] MEDS: TAMSULOSIN 0.4 MG CAP.SR.24H PO SCH (10:06)
[2023-09-30 16:00] VITALS: BP 140/74; TEMP 97.9
[2023-09-30 20:00] VITALS: BP 129/59; TEMP 97.5; O2SAT 95
[2023-10-01 04:00] VITALS: BP_SYST 129; BP_SYST 152; BP_DIAS 59; BP_DIAS 92; TEMP 97.5; TEMP 97.9; O2SAT 94; O2SAT 95
[2023-10-01 08:00] VITALS: BP 168/95; TEMP 97.7; O2SAT 98
[2023-10-01 08:11] LABS: PTH, INTACT 56 pg/mL (15-65)
[2023-10-01] MEDS ORDERED: QUET25TA PO (08:25)
[2023-10-01 14:10] LABS: *SPE ALBUMIN 3.1 g/dL (2.9-4.4); *SPE ALPHA-1-GLOBULIN 0.2 g/dL (0.0-0.4); *SPE ALPHA-2-GLOBULIN 0.9 g/dL (0.4-1.0); *SPE GLOBULIN, TOTAL 3.1 g/dL (2.2-3.9); *SPE M-SPIKE Not Observed g/dL (Not Observed); *SPE PROTEIN TOTAL 6.2 g/dL (6.0-8.5)
[2023-10-01 16:00] VITALS: BP_SYST 117; BP_SYST 138; BP_DIAS 68; BP_DIAS 92; TEMP 97.7; TEMP 99.2; O2SAT 100; O2SAT 98
[2023-10-01 20:00] VITALS: BP 147/72; TEMP 98.6; O2SAT 92
[2023-10-02 04:00] VITALS: BP 124/96; TEMP 99; O2SAT 98
[2023-10-02 07:09] LABS: BASOPHILS % (AUTO) 0.4 % (0.0-2.0); EOSINOPHILS % (AUTO) 0.3 % (0.0-6.0); HEMATOCRIT 37 % (39-51); HEMOGLOBIN 12.2 g/dL (13.5-17.5); LYMPHOCYTES % (AUTO) 9.6 % (20.0-44.0); MEAN CORPUSCULAR HEMOGLOBIN 28 PG (26.0-33.0); MEAN CORPUSCULAR HGB CONC 33 g/dl (31.0-36.0); MEAN CORPUSCULAR VOLUME 85 fL (80-96); MONOCYTES % (AUTO) 9.1 % (2.0-12.0); NEUTROPHILS # (AUTO) 8.5 K/uL (1.8-8.9); NEUTROPHILS % (AUTO) 80.6 % (43.0-81.0); PLATELET COUNT (AUTO) 281 K/uL (150-450); RED BLOOD CELL COUNT(AUTO) 4.32 MIL/uL (4.5-6.0); RED CELL DISTRIBUTION WIDTH 14.4 % (11.5-15.0); WHITE BLOOD COUNT (AUTO) 10.6 K/uL (4.3-11.0)
[2023-10-02 08:00] VITALS: BP 148/107; TEMP 99; O2SAT 98
[2023-10-02 08:27] LABS: ALANINE AMINOTRANSFERASE 46 U/L (12-78); ALBUMIN 2.7 g/dL (3.4-5.0); ALKALINE PHOSPHATASE 101 U/L (46-116); ASPARTATE AMINOTRANSFERASE 49 U/L (15-37); BILIRUBIN,TOTAL 0.7 mg/dL (0.2-1.0); CALCIUM, SERUM 8.7 mg/dL (8.5-10.1); CARBON DIOXIDE 24 mmol/L (21-32); CHLORIDE 107 mmol/L (98-107); CREATININE 1.2 mg/dL (0.6-1.3); GLUCOSE 147 mg/dL (74-106); MAGNESIUM 1.8 mg/dL (1.8-2.4); PHOSPHORUS 2.7 mg/dL (2.5-4.9); POTASSIUM 3.7 mmol/L (3.5-5.1); SODIUM SERUM 141 mmol/L (136-145); TOTAL PROTEIN, SERUM 6.9 g/dL (6.4-8.2); UREA NITROGEN, BLOOD 20 mg/dL (7-18)
[2023-10-02] MEDS: COLCHICINE 0.6 MG TABLET PO SCH (09:38)
[2023-10-02 16:00] VITALS: BP 141/94; TEMP 98.1; O2SAT 97
[2023-10-02 20:00] VITALS: BP 159/86; TEMP 97.7; O2SAT 97
[2023-10-03 04:00] VITALS: BP 129/92; TEMP 97.4; O2SAT 97
[2023-10-03 08:00] VITALS: BP 148/92; TEMP 97.9; O2SAT 97
[2023-10-03] MEDS ORDERED: METO25TA20 PO (09:16)
[2023-10-03 09:38] VITALS: BP 148/92
[2023-10-03] MEDS: METOPROLOL TARTRATE 25 MG TABLET PO SCH (09:38)
[2023-10-03] MEDS: ENSURE ENLIVE CHOC 237 ML CAN PO SCH (09:40)
[2023-10-03] MEDS ORDERED: BISACODYL SUPP (10 MG) 10 MG/SUPP.RECT SUPP.RECT RC PRN (15:00)
== END 2023-10-03 18:49 | disposition home health service (06) | DRG 682 ==
LOC: ER 00:57 → TRANSITION 12:38 → TELE1 14:45 → MEDSG1 15:20
PROVIDERS: ADMIT Internal Medicine; ATTEND Internal Medicine
DX: N17.0 Acute kidney failure with tubular necrosis (principal); E43 Unspecified severe protein-calorie malnutrition; G93.41 Metabolic encephalopathy; F05 Delirium due to known physiological condition; E87.1 Hypo-osmolality and hyponatremia; E86.0 Dehydration; E86.1 Hypovolemia; E88.09 Other disorders of plasma-protein metabolism, not elsewhere classified; I48.91 Unspecified atrial fibrillation; N28.1 Cyst of kidney, acquired; F03.90 Unspecified dementia, unspecified severity, without behavioral disturbance, psychotic disturbance, mood disturbance, and anxiety; F29 Unspecified psychosis not due to a substance or known physiological condition; N18.9 Chronic kidney disease, unspecified; I12.9 Hypertensive chronic kidney disease with stage 1 through stage 4 chronic kidney disease, or unspecified chronic kidney disease; Z20.822 Contact with and (suspected) exposure to COVID-19; Z68.24 Body mass index [BMI] 24.0-24.9, adult; M10.9 Gout, unspecified; N40.0 Benign prostatic hyperplasia without lower urinary tract symptoms
CPT/HCPCS: 36415; 80048-TC; 80053-TC; 80076-TC; 81001; 82550-TC; 82570-TC; 83735-TC; 83970; 84100-TC; 84155; 84165; 84300-TC; 85025-TC; 87086-TC; 97110-TC; 97112-TC; 97530-TC; G0378; G0480; J0360; J0696; J1650; J2060; J7030; J7060

== ENCOUNTER 2023-10-03 20:42 | Inpatient (IN) | payer OTHER ==
[~2023-10-03] VITALS: Ht 170.2 cm; Wt 70.8 kg
[~2023-10-03 20:42] MED LIST changes: +BENA10TA74 PO; +COLC0.6C3 PO; +METO25TA20 PO; +QUET25TA PO
[2023-10-03 21:22] LABS: BASOPHILS # (AUTO) 0.1 K/uL (0.0-0.2); BASOPHILS % (AUTO) 0.8 % (0.0-2.0); EOSINOPHILS # (AUTO) 0.4 K/uL (0.0-0.7); EOSINOPHILS % (AUTO) 3.4 % (0.0-6.0); HEMATOCRIT 38 % (39-51); HEMOGLOBIN 12.4 g/dL (13.5-17.5); LYMPHOCYTES # (AUTO) 1.2 K/uL (0.8-4.8); LYMPHOCYTES % (AUTO) 10.5 % (20.0-44.0); MEAN CORPUSCULAR HEMOGLOBIN 28 PG (26.0-33.0); MEAN CORPUSCULAR HGB CONC 33 g/dl (31.0-36.0); MEAN CORPUSCULAR VOLUME 86 fL (80-96); MONOCYTES # (AUTO) 1.2 K/uL (0.1-1.30); MONOCYTES % (AUTO) 10.8 % (2.0-12.0); NEUTROPHILS # (AUTO) 8.4 K/uL (1.8-8.9); NEUTROPHILS % (AUTO) 74.5 % (43.0-81.0); PLATELET COUNT (AUTO) 224 K/uL (150-450); RED BLOOD CELL COUNT(AUTO) 4.42 MIL/uL (4.5-6.0); RED CELL DISTRIBUTION WIDTH 14.4 % (11.5-15.0); WHITE BLOOD COUNT (AUTO) 11.3 K/uL (4.3-11.0)
[2023-10-03] MEDS ORDERED: MAG HYDROX/AL HYDROX/SIMETH 30 ML UDC PO PRN (21:30)
[2023-10-03] MEDS ORDERED: ACETAMINOPHEN 325 MG TABLET PO PRN (21:30)
[2023-10-03] MEDS ORDERED: ONDANSETRON HCL/PF 4 MG/2 ML VIAL IVP PRN (21:30)
[2023-10-03] MEDS ORDERED: Z GUARD REMEDY 4 OZ OINT TP PRN (21:30)
[2023-10-03 21:42] LABS: CALCIUM, SERUM 8.6 mg/dL (8.5-10.1); CREATININE 1.2 mg/dL (0.6-1.3); POTASSIUM 4.3 mmol/L (3.5-5.1)
[2023-10-03 23:05] VITALS: BP 138/71; TEMP 97.7; O2SAT 94
[2023-10-03 23:15] VITALS: BP 138/71; TEMP 97.7; O2SAT 94
[2023-10-04] MEDS ORDERED: COLCHICINE 0.6 MG TABLET PO PRN (00:30)
[2023-10-04 06:57] LABS: BASOPHILS # (AUTO) 0.1 K/uL (0.0-0.2); BASOPHILS % (AUTO) 0.6 % (0.0-2.0); EOSINOPHILS # (AUTO) 0.4 K/uL (0.0-0.7); EOSINOPHILS % (AUTO) 3.9 % (0.0-6.0); HEMATOCRIT 39 % (39-51); HEMOGLOBIN 12.5 g/dL (13.5-17.5); LYMPHOCYTES # (AUTO) 1.6 K/uL (0.8-4.8); MEAN CORPUSCULAR HEMOGLOBIN 28 PG (26.0-33.0); MEAN CORPUSCULAR HGB CONC 32 g/dl (31.0-36.0); MEAN CORPUSCULAR VOLUME 88 fL (80-96); MONOCYTES # (AUTO) 1.3 K/uL (0.1-1.30); MONOCYTES % (AUTO) 12.7 % (2.0-12.0); NEUTROPHILS # (AUTO) 6.7 K/uL (1.8-8.9); NEUTROPHILS % (AUTO) 66.8 % (43.0-81.0); PLATELET COUNT (AUTO) 296 K/uL (150-450); RED BLOOD CELL COUNT(AUTO) 4.44 MIL/uL (4.5-6.0); RED CELL DISTRIBUTION WIDTH 15.3 % (11.5-15.0); WHITE BLOOD COUNT (AUTO) 10.1 K/uL (4.3-11.0)
[2023-10-04 07:55] LABS: CALCIUM, SERUM 8.7 mg/dL (8.5-10.1); CARBON DIOXIDE 22 mmol/L (21-32); CHLORIDE 103 mmol/L (98-107); CREATININE 1.1 mg/dL (0.6-1.3); GLUCOSE 100 mg/dL (74-106); MAGNESIUM 1.8 mg/dL (1.8-2.4); PHOSPHORUS 2.9 mg/dL (2.5-4.9); POTASSIUM 3.6 mmol/L (3.5-5.1); SODIUM SERUM 140 mmol/L (136-145); UREA NITROGEN, BLOOD 22 mg/dL (7-18)
[2023-10-04 08:00] VITALS: BP 168/84; TEMP 98.4; O2SAT 96
[2023-10-04] MEDS: TAMSULOSIN 0.4 MG CAP.SR.24H PO SCH (08:04)
[2023-10-04] MEDS: PANTOPRAZOLE 40 MG TABLET.DR PO SCH (08:04)
[2023-10-04] MEDS: METOPROLOL TARTRATE 25 MG TABLET PO SCH (08:04)
[2023-10-04] MEDS: QUETIAPINE FUMARATE 25 MG TABLET PO SCH (08:04)
[2023-10-04 08:53] LABS: THYROID STIMULATING HORMONE 2.799 uIU/mL (0.358-3.74)
[2023-10-04 16:00] VITALS: BP 166/86; TEMP 98.2; O2SAT 95
[2023-10-04 20:00] VITALS: BP 158/96; TEMP 98.1; O2SAT 95
[2023-10-05 07:30] VITALS: BP 147/77; TEMP 97.9; O2SAT 96
[2023-10-05] MEDS: BENAZEPRIL HCL 10 MG TABLET PO SCH (08:39)
[2023-10-05 16:00] VITALS: BP 108/71; TEMP 98.2; O2SAT 96
[2023-10-05] MEDS: ENSURE ENLIVE CHOC 237 ML CAN PO SCH (17:04)
[2023-10-05 20:00] VITALS: BP 148/84; TEMP 98.1; O2SAT 95
[2023-10-05] MEDS: ZOLPIDEM TARTRATE 5 MG TABLET PO PRN (20:56)
[2023-10-06 08:00] VITALS: BP 173/84; TEMP 97.9; O2SAT 96
[2023-10-06] MEDS: MAGNESIUM HYDROXIDE 30 ML UDC PO PRN (17:30)
[2023-10-06 20:00] VITALS: BP 131/72; TEMP 98.8; TEMP 98.9; O2SAT 94
[2023-10-07 08:07] LABS: CALCIUM, SERUM 9.2 mg/dL (8.5-10.1); CREATININE 1.3 mg/dL (0.6-1.3); POTASSIUM 4.1 mmol/L (3.5-5.1)
[2023-10-07 08:41] VITALS: BP 130/81; TEMP 98.1; O2SAT 100
[2023-10-07 15:55] VITALS: BP 118/61; TEMP 97.7; O2SAT 98
[2023-10-07 20:00] VITALS: BP 133/62; TEMP 99; O2SAT 54; O2SAT 94
[2023-10-08 07:00] VITALS: BP 142/69; TEMP 99; O2SAT 97
[2023-10-08 16:00] VITALS: BP 100/48; TEMP 98.1; O2SAT 93
[2023-10-08 20:00] VITALS: BP 108/89; TEMP 98.2; O2SAT 95
[2023-10-09 08:00] VITALS: BP 154/74; TEMP 98.2; O2SAT 95
[2023-10-09 15:11] VITALS: BP 120/61; TEMP 98.6; O2SAT 96
[2023-10-09 20:00] VITALS: BP 115/57; TEMP 98.7; O2SAT 93
[2023-10-10 08:42] VITALS: BP 129/70; TEMP 97.5; O2SAT 94
[2023-10-10 16:48] VITALS: BP 104/69; TEMP 97.6; O2SAT 99
[2023-10-10 21:41] VITALS: BP 144/83
== END 2023-10-10 22:25 | disposition home health service (06) | DRG 640 ==
LOC: ER 21:06 → MED 22:24
PROVIDERS: ADMIT Student in an Organized Health Care Education/Training Program
DX: R62.7 Adult failure to thrive (principal); E43 Unspecified severe protein-calorie malnutrition; G93.41 Metabolic encephalopathy; F02.82 Dementia in other diseases classified elsewhere, unspecified severity, with psychotic disturbance; E46 Unspecified protein-calorie malnutrition; I48.20 Chronic atrial fibrillation, unspecified; F02.83 Dementia in other diseases classified elsewhere, unspecified severity, with mood disturbance; F02.811 Dementia in other diseases classified elsewhere, unspecified severity, with agitation; E87.1 Hypo-osmolality and hyponatremia; E86.0 Dehydration; I12.9 Hypertensive chronic kidney disease with stage 1 through stage 4 chronic kidney disease, or unspecified chronic kidney disease; N18.9 Chronic kidney disease, unspecified; G30.9 Alzheimer's disease, unspecified; F29 Unspecified psychosis not due to a substance or known physiological condition; R53.1 Weakness; M10.9 Gout, unspecified; Z90.49 Acquired absence of other specified parts of digestive tract; Z79.899 Other long term (current) drug therapy; D63.8 Anemia in other chronic diseases classified elsewhere; E86.1 Hypovolemia; N40.0 Benign prostatic hyperplasia without lower urinary tract symptoms; R79.89 Other specified abnormal findings of blood chemistry
CPT/HCPCS: 36415; 71045-TC; 80048-TC; 80053-TC; 80076-TC; 81001; 82550-TC; 82570-TC; 83735-TC; 83970; 84100-TC; 84155; 84165; 84300-TC; 84443-TC; 85025-TC; 87081-TC; 87086-TC; 92526; 92611-TC; 97110-TC; 97112-TC; 97116-TC; 97530-TC; 97535-TC; A6403; G0378; G0480; J0360; J0696; J1650; J2060; J7030; J7060